=== PATIENT | female | born 1970 | race Caucasian/White ===

== ENCOUNTER 2016-11-26 14:05 | Emergency (ER) | payer OTHER ==
[~2016-11-26] VITALS: Ht 165.1 cm; Wt 90.9 kg
[2016-11-26] MEDS ORDERED: EPINEPHrine 1 MG INJ IM STA (14:07)
[2016-11-26] MEDS ORDERED: METHYLPREDNISOLONE 125 MG INJ IV STA (14:07)
[2016-11-26] MEDS ORDERED: FAMOTIDINE 20 MG INJ IV STA (14:07)
[2016-11-26] MEDS ORDERED: SOD CHLORIDE 0.9% 1,000 ML IV STA (14:07)
[2016-11-26] MEDS ORDERED: EPINEPHrine 0.1 MG/ML SYG ONE (14:09)
[2016-11-26] MEDS ORDERED: METHYLPREDNISOLONE 125 MG INJ ONE (14:09)
[2016-11-26] MEDS ORDERED: EPINEPHrine 1 MG INJ ONE (14:10)
[2016-11-26 14:21] VITALS: Ht 165.1 cm; Wt 90.9 kg
[2016-11-26] MEDS ORDERED: EPIN0.3P4 INJ (14:47)
[2016-11-26] MEDS ORDERED: PRED20TA PO (14:47)
[2016-11-26] MEDS ORDERED: EPIN0.152 INJ (14:47)
--- NOTE | 2016-11-26 14:48 | ERD ---
ER Documentation Chief Complaint Date/Time DATE: 11/26/16 TIME: 14:48 Chief Complaint pt was stung by a bee right side of neck around 15 mins ago HPI Patient is a 46-year-old female with no medical problems who presents with an allergic reaction after a bee sting. The patient was brought in by ambulance. She was given Benadryl 50 mg IV by paramedics but her symptoms were worsening. The patient was stung in the neck by the be 15-20 minutes ago on the right side. She has no known allergy to bee stings in the past. She is having shortness of breath and feels like her throat is swelling. Upon review of old medical records this is the patient's first visit to the emergency department. ROS All systems reviewed and are negative except as per history of present illness. Medications Home Meds Active Scripts Epinephrine (Epipen 2-Lake) 0.3 Mg/0.3 Ml Pen.injctr, 1 EA INJ ONCE Y for ALLERGIC REACTION, #1 EA Prov:FRANCK NYE MD 11/26/16 Epinephrine (Epipen Jr 2-Lake) 0.15 Mg/0.3 Ml Pen.injctr, 1 EA INJ ONCE Y for ALLERGIC REACTION, #1 EA Prov:FRANCK NYE MD 11/26/16 Prednisone* (Prednisone*) 20 Mg Tab, 60 MG PO DAILY for 4 Days, TAB Prov:FRANCK NYE MD 11/26/16 Allergies Allergies: Coded Allergies: bee venom protein (honey bee) (Verified Allergy, Severe, RASH HIVES BREATHING, 11/26/16) PMhx/Soc Medical and Surgical Hx: pt denies Medical Hx History of Surgery: Yes (appendix) Hx Psychiatric Problems: No Hx Miscellaneous Medical Probl: No Hx Alcohol Use: No Hx Substance Use: No Hx Tobacco Use: No Smoking Status: Never smoker FmHx Family History: diabetes Physical Exam Vitals Vital Signs Date Time Temp Pulse Resp B/P Pulse Ox O2 Delivery O2 Flow Rate FiO2 11/26/16 15:42 69 17 122/84 100 Room Air 11/26/16 14:28 Nasal Cannula 2 11/26/16 14:21 99.1 63 22 141/110 97 Physical Exam Const: Severe distress Head: Atraumatic Eyes: Normal Conjunctiva ENT: No obvious oropharyngeal swelling or stridor over the neck Neck: Full range of motion..~ No meningismus. No stridor Resp: Clear to auscultation bilaterally Cardio: Tachycardic rate without murmur Abd: Soft, non tender, non distended. Normal bowel sounds Skin: Flushing of the skin diffusely with urticaria coalescing Back: No midline or flank tenderness Ext: No cyanosis, or edema Neur: Awake and alert Psych: Normal Mood and Affect Results 24 hrs Current Medications Medications (Trade) Dose Ordered Sig/Parth Route PRN Reason Start Time Stop Time Status Last Admin Dose Admin Epinephrine (EPINEPHrine) 0.3 mg ONCE STAT IM 11/26/16 14:07 11/26/16 14:09 DC 11/26/16 14:17 Famotidine (Pepcid Iv) 20 mg ONCE STAT IV 11/26/16 14:07 11/26/16 14:09 DC 11/26/16 14:18 Methylprednisolone Sodium Succinate 125 mg 125 mg ONCE STAT IV 11/26/16 14:07 11/26/16 14:09 DC 11/26/16 14:17 Sodium Chloride (NS) 1,000 ml @ 1,000 mls/hr Q1H STAT IV 11/26/16 14:07 11/26/16 15:06 DC 11/26/16 14:17 Procedures/MDM EKG read by me: Rate/Rhythm: Sinus tachycardia rate of 109 Intervals: Normal Impression: Sinus tachycardia without ischemia Patient is a 46-year-old female presents with what appears to be acute anaphylaxis. The patient was given epinephrine, Solu-Medrol, and Pepcid. She had already been given Benadryl by paramedics. The patient was reevaluated approximately 1 hour after treatment and feels much better. Her rash is gone. She no longer feels like her throat is swelling. Her vital signs are normal. At this point I believe outpatient management is appropriate. The patient will need 4 more days of prednisone and I will also give a prescription for an EpiPen and told to keep this with her at all times. She can follow-up with her primary doctor within 24-48 hours. She can return sooner for any worsening symptoms. Critical Care: Time: 35 minutes excluding all billable procedures. Treatments/Evaluations: Close monitoring and treatment of unstable vital signs, cardiorespiratory, and neurologic status, while maintaining tight balance of fluid, respiratory, and cardiac interventions. Departure Diagnosis: Primary Impression: Acute anaphylaxis Encounter type: initial encounter Qualified Code: T78.2XXA - Acute anaphylaxis, initial encounter Condition: Fair Patient Instructions: Anaphylaxis, General Referrals: Your doctor Additional Instructions: Call your primary care doctor TOMORROW for an appointment during the next 1-2 days.See the doctor sooner or return here if your condition worsens before your appointment time. FRANCK NYE MD Nov 26, 2016 14:48
[2016-11-26 15:42] VITALS: BP 122/84; PULSE 69; RESP 17
== END 2016-11-26 15:43 | disposition home or self-care (01) ==
LOC: E/R 14:05
DX: T63.441A Toxic effect of venom of bees, accidental (unintentional), initial encounter (principal)
CPT/HCPCS: 93005; 96372; 96374; 96375; J0171; J2930; J7030; Z7502; Z7610